=== PATIENT | male | born 1935 | race Caucasian/White ===

== ENCOUNTER → 2017-07-08 | Outpatient (CLI) | payer OTHER ==
[~2017-07-08] MED LIST: ASPEC81 PO; ATOR-24 PO; CHOL100010 PO; COEN1CAP37 PO; IMDSR30 PO; METO50TA7 PO; NXM/40 PO
[2017-07-08 12:14] LABS: BASO % 0.1 %; BASO ABS # 0.01 K/uL (0-0.2); COMPLETE YES; HEMATOCRIT 46.2 % (42-52); IG% 0.3 %; LYMPH % 8.5 %; LYMPH ABS # 1.55 K/uL (1.2-3.4); MEAN CELL VOLUME 90.8 fL (80-100); MEAN CORPUSCULAR HEMOGLOBIN 29.3 pg (25-34); MEAN CORPUSCULAR HGB CONC 32.3 g/dl (32-36); MEAN PLATELET VOLUME 9.4 fL (7.4-10.4); MONO % 8.3 %; NEUT % 82.8 %; PLATELET COUNT 301 K/uL (130-400); RED BLOOD COUNT 5.09 M/uL (4.7-6.1); WHITE BLOOD COUNT 18.25 K/uL (4.8-10.8)
[2017-07-08 12:34] LABS: BLOOD UREA NITROGEN 27 mg/dl (7-18)
[2017-07-08 12:45] LABS: THYROID STIMULATING HORMONE 0.749 uIu/ml (0.300-4.500)
[2017-07-08 13:26] LABS: LYME DISEASE AB IGM NEG (NEG)
[2017-07-08 13:29] LABS: LYME DISEASE AB IGG NEG (NEG)
== END | disposition home or self-care (01) ==
LOC: C.LABBFT 07:54
PROVIDERS: ATTEND Urology
DX: H91.20 Sudden idiopathic hearing loss, unspecified ear (principal); N40.0 Benign prostatic hyperplasia without lower urinary tract symptoms

== ENCOUNTER → 2017-07-13 | Outpatient (CLI) | payer OTHER ==
[~2017-07-13] MED LIST changes: +GADAVIST IV PRN
--- NOTE | 2017-07-13 09:46 | DIAGNOSTIC IMAGING REPORT ---
BRAIN COMBO FOR IAC CLINICAL HISTORY: H91.20 Sudden-onset sensorineural hearing loss PATIENT WITH SUDDEN hearing loss TECHNIQUE: Multiaxial MRI acquisition COMPARISON STUDY: None FINDINGS: Diffusion-weighted images are negative for an acute ischemic insult. Findings of mild chronic small vessel change of the periventricular deep white matter regions. Sella and parasellar regions are unremarkable. Structures the internal auditory canals are within normal limits. There is no evidence for abnormal postcontrast enhancement. Ventricular system is midline. IMPRESSION: 1. Age-related change including mild chronic small vessel change throughout both cerebral hemispheres. 2. Normal internal auditory canals. 3. No evidence for abnormal postcontrast enhancement. The above report was generated using voice recognition software. It may contain grammatical, syntax or spelling errors. Electronically signed by: Melquiades Yoon M.D. 07/13/2017 9:45 AM Dictated Date/Time: 07/13/2017 9:40 AM
== END | disposition home or self-care (01) ==
LOC: C.MRIBC 07:19
DX: H91.20 Sudden idiopathic hearing loss, unspecified ear (principal)

== ENCOUNTER → 2017-07-27 | Outpatient (CLI) | payer OTHER ==
[~2017-07-27] MED LIST changes: -GADAVIST IV PRN
[2017-07-27 17:27] LABS: BASO % 0.2 %; BASO ABS # 0.02 K/uL (0-0.2); COMPLETE YES; EOS % 1.2 %; IG% 0.3 %; LYMPH ABS # 1.57 K/uL (1.2-3.4); MEAN CELL VOLUME 91.1 fL (80-100); MEAN CORPUSCULAR HEMOGLOBIN 30.5 pg (25-34); MEAN CORPUSCULAR HGB CONC 33.5 g/dl (32-36); MEAN PLATELET VOLUME 9.5 fL (7.4-10.4); MONO % 12.3 %; PLATELET COUNT 198 K/uL (130-400); RED BLOOD COUNT 4.39 M/uL (4.7-6.1); WHITE BLOOD COUNT 10.49 K/uL (4.8-10.8)
[2017-07-27 17:38] LABS: URINE APPEARANCE CLEAR (CLEAR); URINE BILIRUBIN NEG (NEG); URINE COLOR YELLOW; URINE EPITHELIAL CELL AUTO 0-5 /lpf (0-5); URINE NITRITE NEG (NEG); URINE SPECIFIC GRAVITY 1.029 (1.000-1.030); UROBILINOGEN NEG (NEG); ZZUR CULT IF INDIC CLEAN CATCH NO
[2017-07-27 17:47] LABS: ALT/SGPT 30 U/L (12-78); BLOOD UREA NITROGEN 19 mg/dl (7-18); BUN/CREATININE RATIO 19.6 (10-20); CARBON DIOXIDE 28 mmol/L (21-32); CHLORIDE 104 mmol/L (98-107); CREATININE 0.99 mg/dl (0.60-1.40); GLUCOSE 81 mg/dl (70-99); SODIUM 138 mmol/L (136-145)
[2017-07-27 17:50] LABS: ALB/GLOB RATIO 0.9 (0.9-2); ALKALINE PHOSPHATASE 80 U/L (45-117); AST/SGOT 24 U/L (15-37)
[2017-07-27 17:54] LABS: MANUAL MICROSCOPIC REQUIRED? NO; REVIEW REQ? NO
== END | disposition home or self-care (01) ==
LOC: C.LABBFT 02:44
PROVIDERS: ATTEND Internal Medicine
DX: R39.9 Unspecified symptoms and signs involving the genitourinary system (principal)

== ENCOUNTER → 2017-08-09 | Outpatient (CLI) | payer OTHER ==
[2017-08-09 13:14] LABS: ALT/SGPT 23 U/L (12-78); BLOOD UREA NITROGEN 17 mg/dl (7-18); CARBON DIOXIDE 26 mmol/L (21-32); CHLORIDE 107 mmol/L (98-107); CHOLESTEROL 171 mg/dl (0-200); GLUCOSE 90 mg/dl (70-99); POTASSIUM 4.2 mmol/L (3.5-5.1); SODIUM 140 mmol/L (136-145); TRIGLYCERIDES 140 mg/dl (0-150); VERY LOW DENSITY LIPOPROT CALC 28 mg/dl
[2017-08-09 13:18] LABS: ALKALINE PHOSPHATASE 102 U/L (45-117); AST/SGOT 21 U/L (15-37); CHOLESTEROL/HDL RATIO 3.1; HDL CHOLESTEROL 55 mg/dl; LDL CHOLESTEROL CALCULATED 88 mg/dl
[2017-08-09 13:19] LABS: BASO % 0.3 %; BASO ABS # 0.02 K/uL (0-0.2); COMPLETE YES; EOS % 2.2 %; HEMATOCRIT 43.4 % (42-52); IG% 0.3 %; LYMPH % 23.4 %; MEAN CELL VOLUME 90.4 fL (80-100); MEAN CORPUSCULAR HEMOGLOBIN 29.6 pg (25-34); MEAN CORPUSCULAR HGB CONC 32.7 g/dl (32-36); MONO % 15.8 %; PLATELET COUNT 338 K/uL (130-400); WHITE BLOOD COUNT 7.27 K/uL (4.8-10.8)
== END | disposition home or self-care (01) ==
LOC: C.LABBFT 07:37
PROVIDERS: ATTEND Internal Medicine
DX: E78.5 Hyperlipidemia, unspecified (principal); R73.01 Impaired fasting glucose; E55.9 Vitamin D deficiency, unspecified; I10 Essential (primary) hypertension

== ENCOUNTER → 2017-08-23 | Outpatient (CLI) | payer OTHER | END | disposition home or self-care (01) | LOC: C.LABBFT 12:00 | PROVIDERS: ATTEND Physician Assistant | DX: E53.8 Deficiency of other specified B group vitamins (principal) ==

== ENCOUNTER → 2017-09-16 | Outpatient (CLI) | payer OTHER ==
[~2017-09-16] MED LIST changes: +GADAVIST IV PRN
--- NOTE | 2017-09-16 15:08 | DIAGNOSTIC IMAGING REPORT ---
PROSTATE MRI COMBO CLINICAL HISTORY: 82 years-old Male presenting with R97.20 Elevated prostate specific antigen (PSA), enlarged prostate. PSA 19.6 ng/mL. TECHNIQUE: Multisequence, multiplanar MR imaging of the prostate was performed before and after the administration of intravenous contrast. Additional postprocessing was performed on a separate [employer] workstation by the radiologist for 3-D volumetric segmentation of the prostate and contouring of region(s) of interest (KACIE) for targeting. IV contrast: 7.9 mL of Gadavist. COMPARISON: None. FINDINGS: Prostate: The prostate measures 5.6 x 5.3 x 5.9 cm (DynaCAD prostate boundary segmentation volume 90 mL). Moderate changes of benign prostatic hyperplasia. Precontrast T1 weighted imaging demonstrates no evidence of intrinsic T1 hyperintensity to suggest hemorrhage. Seminal vesicles normal. Suspicious lesion(s) described below: Lesion (DynaCAD KACIE) 1: Location: Left posteromedial peripheral zone at the mid gland to apex. The lesion extends across the midline. Size: 17 mm (as measured on ADC for PZ lesion and T2WI for TZ lesion) T2W: 5. Noncircumscribed homogeneously T2 hypointense with an extended interface with the overlying prostate capsule. No evidence of extraprostatic extension. DWI: 5. Focal markedly hypointense on ADC and markedly hyperintense on high b-value DWI. DCE: Positive. Focal enhancement corresponding to a suspicious finding, earlier or contemporaneous with adjacent normal tissue. PI-RADS: 5. Clinically significant cancer is highly likely to present. Bladder: Bladder wall thickening likely indicating chronic outlet obstruction. Bowel: Rectal wall thickening with enhancing mural vessels consistent with internal hemorrhoids. Peritoneum: No free fluid in the pelvis. Bilateral inguinal hernias, left greater than right. Lymph nodes: No lymphadenopathy in the visualized portion of the pelvis. Vasculature: Atherosclerosis somewhat narrows the lumen of the bilateral femoral arteries. Osseous structures: Normal bone marrow signal intensity. IMPRESSION: 1. 17 mm lesion in the left posteromedial peripheral zone at the mid gland to apex. PI-RADS 5. Clinically significant cancer is highly likely to present. The extended interface with the overlying prostate capsule increases the risk of microinvasion, although no ashley extraprostatic extension is evident. This lesion has been segmented for targeted biopsy. 2. Benign prostatic hyperplasia. Electronically signed by: Rizwan Waggoner M.D. 09/16/2017 3:07 PM Dictated Date/Time: 09/16/2017 2:55 PM
== END | disposition home or self-care (01) ==
LOC: C.MRIBC 13:15
PROVIDERS: ATTEND Urology
DX: R97.20 Elevated prostate specific antigen [PSA] (principal); N42.9 Disorder of prostate, unspecified; N40.0 Benign prostatic hyperplasia without lower urinary tract symptoms

== ENCOUNTER → 2017-11-24 | Day surgery (SDC) | payer OTHER ==
[~2017-11-24] VITALS: Ht 170.2 cm; Wt 84.0 kg
[~2017-11-24] MED LIST changes: +AMPICILLIN IV SCH; -GADAVIST IV PRN; +ISOS120T5 PO; +NSS IV SCH
[2017-11-24] MEDS: GENTAMICIN INJ 80 MG in DEXTROSE 5% 100ML 100 ML IV SCH ×2 (09:26→10:12)
[2017-11-24 09:35] VITALS: BP 149/73; PULSE 58; TEMP 36.5; O2SAT 94; Ht 170.2 cm; Wt 84.0 kg
== END | disposition home or self-care (01) ==
LOC: C.MTU 09:18
PROVIDERS: ATTEND Urology
DX: Z48.812 Encounter for surgical aftercare following surgery on the circulatory system (principal); Z95.2 Presence of prosthetic heart valve

== ENCOUNTER → 2017-11-25 | Outpatient (CLI) | payer OTHER ==
[~2017-11-25] MED LIST changes: -AMPICILLIN IV SCH; -IMDSR30 PO; -NSS IV SCH
== END | disposition home or self-care (01) ==
LOC: C.PATHSPEC 13:21
PROVIDERS: ATTEND Urology
DX: R97.20 Elevated prostate specific antigen [PSA] (principal); C61 Malignant neoplasm of prostate; N41.1 Chronic prostatitis; N42.89 Other specified disorders of prostate

== ENCOUNTER → 2017-12-12 | Outpatient (CLI) | payer OTHER ==
--- NOTE | 2017-12-12 13:27 | DIAGNOSTIC IMAGING REPORT ---
BONE SCAN WHOLE BODY HISTORY: Prostate carcinoma C61 Prostate [id number] RADIOTRACER: 25 mCi Tc-99m MDP STUDY/IMAGES: Planar anterior and posterior whole body imaging was performed 3 hours following the intravenous administration of radiotracer. COMPARISON: None. FINDINGS: Bilateral renal activity is present. The graft degenerative activity involving the left shoulder. Minimal scattered foci of degenerative activity involving the thoracolumbar spine. Minimal degenerative activity in the knees and hips. No pattern suggestive of metastatic bone disease. IMPRESSION: 1. Study is negative for metastatic bone disease. 2. Scattered degenerative activity in the axial and appendicular skeleton. The above report was generated using voice recognition software. It may contain grammatical, syntax or spelling errors. Electronically signed by: Melquiades Yoon M.D. 12/12/2017 1:26 PM Dictated Date/Time: 12/12/2017 1:25 PM
== END | disposition home or self-care (01) ==
LOC: C.NUCL 09:30
PROVIDERS: ATTEND Urology
DX: C61 Malignant neoplasm of prostate (principal)

== ENCOUNTER → 2018-02-15 | Outpatient (CLI) | payer OTHER ==
[~2018-02-15] MED LIST changes: +GADAVIST IV PRN; -METO50TA7 PO; +METO50TA8 PO; +NTRGSL/4 UT; -NXM/40 PO; +SILD100T PO
--- NOTE | 2018-02-15 11:42 | DIAGNOSTIC IMAGING REPORT ---
PROSTATE MRI COMBO CLINICAL HISTORY: 82 years-old Male presenting with PROSTATE CA. PSA 19.6 ng/mL on 07/08/2017, [place] 4+3 left base and left mid, [place] 4+3 in lesion #1 on biopsy from 11/24/2017.. TECHNIQUE: Multisequence, multiplanar MR imaging of the prostate was performed before and after the administration of intravenous contrast. Additional postprocessing was performed on a separate [employer] workstation by the radiologist for 3-D volumetric segmentation of the prostate and contouring of region(s) of interest (KACIE) for targeting. IV contrast: 8 mL of Gadavist. COMPARISON: 09/16/2017. FINDINGS: Prostate: The prostate measures 5.9 x 5.4 x 6.6 cm(DynaCAD prostate boundary segmentation volume 94 mL). Severe changes of benign prostatic hyperplasia. Precontrast T1 weighted imaging demonstrates no evidence of intrinsic T1 hyperintensity to suggest hemorrhage. The peripheral zone is diffusely T2 hypointense limiting evaluation of this region. Suspicious lesion(s) described below: Lesion (ZartisaCAD KACIE) 1: Location: Left posteromedial peripheral zone at the base to mid gland. The lesion extends across the midline. Size: Approximately 12 mm. This is not easily measurable secondary to the indistinct appearance. T2W: 3. Heterogeneous signal intensity or noncircumscribed, rounded, moderate hypointensity. No evidence of extraprostatic extension, seminal vesicle invasion, or neurovascular bundle involvement. DWI: 2. Indistinct hypointense on ADC. DCE: Positive. Focal enhancement corresponding to a suspicious finding, earlier or contemporaneous with adjacent normal tissue. PI-RADS: 2. Clinically significant cancer is unlikely due to be present. Seminal vesicles atrophic. There has been interval placement of a T2 hyperintense gel in the rectal prostatic region for radiation therapy. Bladder: Bladder wall thickening likely indicating chronic outlet obstruction. Bowel: Visualized portion of the rectum normal. Peritoneum: No free fluid in the pelvis. Lymph nodes: No lymphadenopathy in the visualized portion of the pelvis. Vasculature: Iliac vessels patent. Abdominal wall: Normal. Osseous structures: Normal bone marrow signal intensity. IMPRESSION: 1. Interval decrease in conspicuity and suspicious signal characteristics of the previously described left posterior medial peripheral zone lesion, which crosses the midline. No evidence of extraprostatic extension or pelvic lymphadenopathy. 2. Benign prostatic hyperplasia. Electronically signed by: Rizwan Waggoner M.D. 02/15/2018 11:40 AM Dictated Date/Time: 02/15/2018 11:27 AM
== END | disposition home or self-care (01) ==
LOC: C.MRIBC 09:40
PROVIDERS: ATTEND Radiology Radiation Oncology
DX: C61 Malignant neoplasm of prostate (principal); N40.0 Benign prostatic hyperplasia without lower urinary tract symptoms

== ENCOUNTER 2019-07-18 07:05 | Inpatient (IN) ==
--- NOTE | 2019-07-18 07:38 | History & Physical Bridge Note ---
Date of Service July 18, 2019 History & Physical Bridge Note I have examined the patient, reviewed the History & Physical and in the interval since the performance of the History & Physical I have noted the following changes of clinical significance: no changes noted
--- NOTE | 2019-07-18 07:38 | Pre Anesthesia Assessment ---
Date of Service July 18, 2019 Pre Sedation Assessment Vital Signs Temp Pulse Resp BP Pulse Ox 07/18/19 07:19 97.7 F 62 17 171/77 H 98 Cardiovascular RRR, no murmur, no edema Respiratory normal respiratory effort, lungs clear to auscultation Pre-Sedation Airway Assessment Smoking Status: Former smoker Hx Sleep Apnea: No Hx Difficult Intubation: No Short, Thick Neck: No Thyromental Distance: > or= 3.5 Finger Breadths Oral Cavity: + Dentures Mallampati Class: III ASA: ASA3 NPO Status Date of Last Intake of Fluids: 07/17/19 Time of Last Intake of Fluids: 18:30 Date of Last Intake of Solid Food: 07/17/19 Time of Last Intake of Solid Foods: 18:30 Procedure Planning Contraindications for Sedation: none Current Medications Reviewed: Yes Notes The planned sedation has been discussed with the patient. Informed Consent was obtained. I have identified the patient, determined the appropriateness of sedation and have assessed the patient immediately prior to the procedure. All medicine(s) and interventions are by my order.
[2019-07-18] MEDS ORDERED: fentaNYL citrate 100 MCG/2 ML VIAL ONE (07:47)
[2019-07-18] MEDS ORDERED: HEPARIN (PORCINE) 1000 UNIT/ML 10 ML (CATH LAB USE ONLY) ONE (07:47)
[2019-07-18] MEDS ORDERED: NiCARDipine HCL INJ 2.5 MG/ML 10 ML AMP ONE (07:47)
[2019-07-18] MEDS ORDERED: MIDAZOLAM HCL 1 MG/ML 2ML VIAL ONE (07:48)
[2019-07-18] MEDS ORDERED: NITROGLYCERIN/D5W 100MCG/ML 20ML SYR ONE (07:48)
[2019-07-18] MEDS ORDERED: CLOPIDOGREL BISULFATE 300 MG TAB ONE (09:27)
--- NOTE | 2019-07-18 09:37 | Post Anesthesia Assessment ---
Date of Service July 18, 2019 Post Sedation Assessment Vital Signs Temp Pulse Resp BP Pulse Ox 07/18/19 07:19 97.7 F 62 17 171/77 H 98 Recovery Score Activity: Moves 4 extremities Respiration: Deep Breath/Cough Circulation: +/-20% PreAnes Value Consciousness: Fully Awake Oxygen Saturation: O2 needed for >90% Discharge Sedation Level of Care: Fast Track Phase II Post Sedation Plan On clinical assessment, the patient appears to have tolerated the sedation without complications. Patient is recovering as anticipated. Patient will continue to be monitored by nursing and may be discharged when sedation discharge criteria are met per below protocol. Upon Completions of procedure and additional 15 minutes continue every 5 minute vital signs and the P.A.R. score; then discharge to a Phase I or Fast Track to Phase II per the following guidelines: * Discharge Patient to appropriate Phase II area if PAR is 8 or greater or return to pre- procedure baseline. The post - procedure orders will be as directed. * If PAR score is less than 8 or not return to pre-procedure baseline then patient will follow Phase I monitoring till PAR is reached for Phase II. The Phase I may be done in procedure room or may call to secure a Phase I area. * If naloxone or flumazenil are used for reversal, hold in Phase I for continued monitoring from when last reversal dose was given for a minimum of 60 minutes or longer pending the nurse and/or physician discretion of patient condition before discharge to Phase II. Please call the Sedation Physician to re-evaluate and complete post-note for discharge to Phase II area. Do NOT discharge from procedure sedation or Phase 1 until post- sedation evaluation note is complete by procedure /sedation MD Sedation Discharge Instructions to be given to the patient at discharge to home.
--- NOTE | 2019-07-18 09:46 | Cardiac Catheterization ---
[facility] Data: Regional Service Manager Cardiac Status Clinical evaluation leading to the procedure CAD Presenation: Positive Stress Test Anginal Classification: CCS III Heart Failure: No Cardiogenic Shock within 24 Hours: No Cardiac Arrest within 24 Hours: No Imaging Studies Past 6 Months: Yes Stress Studies Past 6 Months: Yes Stress Echocardiogram: Yes - Positive and Risk/Extent of Ischemia (High) Diagnostic Physicians Name: Saeed Loco MD Status: Elective Closure Device Percutaneous Entry Location: Radial Closure Device: Radial Band Recommendations: PCI without planned CABG Lesion Segment Name: mid LAD Culprit Artery: Yes Stenosis Prior to Rx (%): 70 Chronic Total Occlusion: No IVUS: No FFR: No Pre-Procedure MISHA Flow: 3 Previously Treated Lesion: No Lesion Complexity: High/C Lesion Length (mm): 12 Thrombus Present: No Bifurcation Lesion: No Guidewire Across Lesion: Stenosis Post-Procedure (%): 0 Post-Procedure MISHA Flow: 3 Devices(s) Deployed: Yes Yes Intraprocedure Events Significant Disection: No Perforation: No Cardiac Cath Procedure Full Procedure Date July 18, 2019 Pre-Procedure Diagnosis Pre-Procedure Diagnosis: Angina and Positive Stress Test AUC Score AUC Score: 7 Post-Procedure Diagnosis Post-Procedure Diagnosis: Severe CAD and Successful PCI Procedure(s) Performed Procedure(s) Performed: Coronary Angiography, Drug Eluting Stent and Bypass Graft Angiography Silver Lap Machine Tender Saeed Loco MD [employer] Pastor(s) Inderjit Estimated Blood Loss Estimated Blood Loss: 15 Medication(s) Medication(s): Clopidogrel, Fentanyl, Heparin, Lidocaine 1%, Nicardipine, Nitroglycerin and Versed Summary of Findings Indication: Unstable angina, positive stress test Access: 6 Fr left radial artery Catheters: JL4, JR4, AR-1, 3 DRC, AL-1, JT Findings: LM -moderate caliber, mild diffuse disease LAD -100% occluded at the ostium Circumflex -small caliber vessel, gives off very small high OM1 with ostial disease, small OM 2 prior to 100% mid segment occlusion RCA -anterior takeoff, 20- 30% ostial, mild diffuse 30% proximal to mid disease, distal luminal irregularities, PDA/PLBs SVG to diagonaloccluded QUINN to LADwidely patent, 70% focal stenosis in mid segment of LAD after anastomosis, distal vessel with luminal irregularities as tapers to apex. Upstream from anastomosis sequential 90+% lesions prior to more proximal small to moderate caliber diagonals. -- PCI -- Antithrombotic therapy: Heparin, clopidogrel Procedure: JT cannulated with JR4 guide Side Stitcher 50 wire passed through QUINN across LAD lesion Mid LAD lesion predilated with 2.0 compliant balloon Dilated lesion stented with 2.25 x 15 Xience drug-eluting stent Stent post-dilated with 2.25 noncompliant balloon IC vasodilators administered for spasm Post procedure MISHA 3 flow, stent well expanded with minimal residual stenosis and no apparent cardiac complications. Arterial Closure: TR Summary: 1. Severe [place] multi-vessel coronary artery disease -100% chronically occluded ostial LAD 100% chronic mid circumflex Mild to moderate diffuse proximal to mid RCA disease 2. Patent QUINN to LAD. Occluded SVG to diagonal 3. 70% stenosis just distal to QUINN anastomosis in mid LAD. Sequential 90+% mid LAD lesions upstream from anastomosis prior to retrofilled diagonals. 4. Successful PCI of mid LAD distal to anastomosis with QUINN with 2.25 x 15 mm Xience drug-eluting stent Recommendations: To PCU for continued monitoring Loaded with clopidogrel 600 mg Continue dual-antiplatelet therapy for at least 6-month Continue statin, and ASCVD risk factor modification Consult cardiac Rehab Hemodynamics Rest Ao:: 120/52/78 Final Ao: 120/46/75 LV: -- Recommendations Recommendations: PCI without planned CABG Specimens Specimens: None Radiation Exposure (mGy) 2202 Contrast (mls) 210 Fluids (cc crystalloids) Fluids (cc crystalloids): 150 Drains Drains: none Anesthesia moderate Disposition PCU
[2019-07-18] MEDS ORDERED: ACETAMINOPHEN 325 MG TAB PO PRN (10:03)
[2019-07-18] MEDS ORDERED: ONDANSETRON INJ 2 MG/ML 2 ML VIAL IV PRN (10:03)
[2019-07-18] MEDS ORDERED: NITROGLYCERIN SL 0.4 MG/TAB TAB SL PRN (10:06)
[2019-07-18] MEDS ORDERED: SODIUM CHLORIDE 0.9% 1000ML 1,000 ML IV SCH (10:15)
[2019-07-18] MEDS ORDERED: ATORVASTATIN 40 MG TAB PO SCH (21:00)
--- NOTE | 2019-07-19 07:35 | Anesthesiology Progress Note ---
Date of Service July 19, 2019 Anesthesia Post Procedure Vital Signs Vital Signs: Temp Pulse Pulse Resp BP Pulse Ox 07/19/19 07:18 36.7 C 55 L 20 152/73 H 94 07/19/19 03:10 37.0 C 57 L 18 148/70 H 98 07/19/19 01:19 60 07/18/19 23:32 36.8 C 58 L 17 138/72 96 07/18/19 19:38 36.9 C 63 18 146/73 H 95 07/18/19 17:13 59 L 07/18/19 15:30 36.6 C 56 L 18 155/71 H 96 07/18/19 13:48 58 L 16 141/73 H 96 07/18/19 12:48 59 L 16 136/70 96 07/18/19 11:48 63 16 144/71 H 07/18/19 11:18 58 L 16 151/72 H 07/18/19 10:48 61 16 146/68 H 07/18/19 10:33 57 L 16 181/69 H 96 07/18/19 10:18 55 L 16 193/86 H 97 07/18/19 10:03 36.6 C 80 16 158/71 H 96 07/18/19 10:00 36.6 C 80 16 158/71 H 97 Notes Mental Status: alert / awake / arousable and participated in evaluation Patient Amnestic to Procedure: Yes Nausea / Vomiting: adequately controlled Pain: adequately controlled Airway Patency, RR, SpO2: stable & adequate BP & HR: stable & adequate Hydration State: stable & adequate Anesthetic Complications: no major complications apparent and Pt Satisfied with anesthetic care
[2019-07-19 07:37] LABS: Basophils # (auto) 0.01 K/uL (0-0.2); Basophils % (auto) 0.2 %; Eosinophils # (auto) 0.18 K/uL (0-0.5); Hematocrit (blood only) 36.8 % (42-52); Hemoglobin 12.4 g/dL (14.0-18.0); Immature Granulocytes # (auto) 0.01 K/uL (0.00-0.02); Immature Granulocytes % (auto) 0.2 %; Lymphocytes # (auto) 0.91 K/uL (1.2-3.4); Lymphocytes % (auto) 15.3 %; Mean Corpuscular Hemoglobin 30.6 pg (25-34); Mean Corpuscular Hgb Conc 33.7 g/dL (32-36); Mean Corpuscular Volume 90.9 fL (80-100); Mean Platelet Volume 8.7 fL (7.4-10.4); Monocytes # (auto) 0.52 K/uL (0.11-0.59); Monocytes % (auto) 8.8 %; Neutrophils # (auto) 4.31 K/uL (1.4-6.5); Neutrophils % (auto) 72.5 %; Platelet Count 207 K/uL (130-400); RDW Coefficient of Variation 14.6 % (11.5-14.5); RDW Standard Deviation 49.2 fL (36.4-46.3); Red Blood Count 4.05 M/uL (4.7-6.1); White Blood Count 5.94 K/uL (4.8-10.8)
[2019-07-19 08:02] LABS: BUN Creatinine Ratio 16.4 (10-20); Calcium 8.1 mg/dl (8.5-10.1); Creatinine Clr Calc Pharmacy 54.9 ml/min; Est GFR (African American) 77.9; Est GFR (Non-African American) 67.2; Potassium 3.8 mmol/L (3.5-5.1)
[2019-07-19] MEDS ORDERED: CLOPIDOGREL BISULFATE 75 MG TAB PO SCH (09:00)
[2019-07-19] MEDS ORDERED: CYANOCOBALAMIN 500 MCG TABLET (VITAMIN B-12) PO SCH (09:00)
[2019-07-19] MEDS ORDERED: ASPIRIN 81 MG ECTAB PO SCH (09:00)
[2019-07-19] MEDS ORDERED: CHOLECALCIFEROL 1,000 UNITS TAB PO SCH (09:00)
[2019-07-19] MEDS ORDERED: METOPROLOL SUCC 50MG EXT REL TAB PO SCH (09:00)
[2019-07-19] MEDS ORDERED: CALCIUM 600MG + VIT D 400 IU TAB PO SCH (09:00)
[2019-07-19] MEDS ORDERED: NON-FORMULARY MEDICATION (Coenzyme Q10 200 MG) PO SCH (09:00)
[2019-07-19] MEDS ORDERED: ISOSORBIDE MONO EXTENDED REL 60 MG TABCR PO SCH (09:00)
--- NOTE | 2019-07-20 10:52 | Discharge Summary ---
Date of Service July 20, 2019 Admission HPI Per Admitting Provider Mr. Manning is an 84-year-old male with a history of CAD s/p CABG x 2 Vessels (QUINN to LAD, SVG to Diagonal), Aortic Stenosis s/p Pericardial Tissue AVR 2010, Hypertension, Hypercholesterolemia, Carotid Artery Stenosis, PAD, Sarcoidosis, GERD, Prostate Cancer, and Paroxysmal Atrial Fibrillation who presents today for cardiac catheterization after having an Abnormal Stress Echocardiogram 07/03/2019. Stress test prompted by accelerating exertional angina and general feeling of "exhaustion." Stress test remarkable for anterior wall hypokinesis with ST segment depressions, exercise 4: 21 on standard Fre with frequent PVCs during exercise, resting LV function 50 to 55% moderate MR. Specialty Data Cardiology 1. Severe [place] multi-vessel coronary artery disease -100% chronically occluded ostial LAD 100% chronic mid circumflex Mild to moderate diffuse proximal to mid RCA disease 2. Patent QUINN to LAD. Occluded SVG to diagonal 3. 70% stenosis just distal to QUINN anastomosis in mid LAD. Sequential 90+% mid LAD lesions upstream from anastomosis prior to retrofilled diagonals. 4. Successful PCI of mid LAD distal to anastomosis with QUINN with 2.25 x 15 mm Xience drug-eluting stent Discharge Data Consultations 07/18/19 10:05 Consult Cardiac Rehabilitation Routine Procedures Performed Operation Date: 07/18/19 08:00 Actual Procedures p Drug Eluting Stent Bypass GR - Neftaly Loco MD s Cineradiography w/Routine Exam - Neftaly Loco MD s Cath, Cors with Grafts (no LV) - Neftaly Loco MD Hospital Course (1) Coronary artery disease: Patient underwent cardiac catheterization via left radial artery. Was again noted to have severe [place] multivessel. SVG to diagonal was occluded. His QUINN to LAD was patent with a 70% stenosis just distal to QUINN anastomosis. Was treated with PCI via QUINN graft with stent placement of 2.25 x 15 mm Xience drug-eluting stent to mid LAD after anastomosis. Procedure uncomplicated. Post procedure was admitted for observation to telemetry unit. Had no recurrent chest pain. Electrically stable on telemetry. Post procedure labs were stable. No apparent access site complications on the day of discharge. Patient discharged home on DAPT with aspirin and clopidogrel. Follow-up with cardiology in 2 to 3 weeks. Continue prior antianginal therapy. Has severe LAD disease upstream from anastomosis limiting retrofilling to first and second diagonals. Discharge Instructions Home Medications aspirin 81 mg tablet 81 mg PO DAILY tab 05/28/19 [History Confirmed 07/17/19] atorvastatin 40 mg tablet 40 mg PO QPM #90 tab 05/28/19 [History Confirmed 07/17/19] cholecalciferol (vitamin D3) 2,000 unit tablet 2,000 units PO DAILY tab 05/28/19 [History Confirmed 07/17/19] coenzyme Q10 200 mg tablet 200 mg PO DAILY tab 05/28/19 [History Confirmed 07/17/19] cyanocobalamin (vit B-12) ER 2,000 mcg tablet,extended release 2,000 mcg PO DAILY tab 05/28/19 [History Confirmed 07/17/19] metoprolol succinate ER 50 mg tablet,extended release 24 hr 50 mg PO DAILY #90 tab 05/28/19 [History Confirmed 07/17/19] nitroglycerin 0.4 mg sublingual tablet 0.4 mg SL .DISSOLVE 1 TABLET UN PRN #25 tab 05/28/19 [History Confirmed 07/17/19] calcium carbonate 600 mg calcium (1,500 mg) tablet 600 mg PO DAILY tab 06/12/19 [History Confirmed 07/17/19] omega-3 acid ethyl esters 1 gram capsule 1 g PO .TAKE 1 CAPSULE Daily #90 cap 06/12/19 [History Confirmed 07/17/19] isosorbide mononitrate ER 120 mg tablet,extended release 24 hr 120 mg PO DAILY #90 tab 07/13/19 [Rx Confirmed 07/17/19] clopidogrel 75 mg tablet 75 mg PO QAM 30 Days #10 tab 07/19/19 [Rx]
== END 2019-07-19 09:35 | disposition home or self-care (01) | DRG 247 ==
LOC: CC 07:05 → 2S 09:11
PROC: CLB.CCG (2019-07-18 08:00)